=== PATIENT | male | born 1945 | race Two or more races ===

== ENCOUNTER 2016-09-13 20:45 | Inpatient (IN) | payer MEDICARE ==
--- NOTE | 2016-09-13 21:22 | ED ---
Neuro HPI - General Chief Complaint: Altered Mental Status Stated Complaint: slurred speech/not feeling well Time Seen by Provider: 09/13/16 21:00 Source: patient Mode of arrival: wheelchair Limitations: no limitations - History of Present Illness Is the patient presenting with stroke symptoms?: Yes Last Known Well Date: 09/13/16 Last Known Well Time: 19:45 -: hour(s) Initial Comments: This patient is a 70-year-old man who presents with complaint of expressive aphasia. The patient states that approximately 7:45 PM he attempted to phone his sister and was unable to verbally express what he was intending to. He states he was having trouble finding words. The patient's supports him stating that what he was saying was not really making sense. Following this they took his blood pressure and it was elevated, systolic was 170. They brought him here to be checked. They both state that his speech is much better now. The patient states that he is feeling like he is nearly at his baseline. 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 He states that he does follow to have his left checked. The patient also has had replacement heart valve and does take warfarin as prescribed. Location: speech History of same: No Place: home Severity: moderate Improves With: time Worsens With: none On Anticoagulants: Yes (warfarin) Context: sudden onset Associated Symptoms: denies other symptoms Treatments Prior to Arrival: none - Related Data Home Medications: Home Medications Medication Instructions Recorded Confirmed Levothyroxine Sodium [Synthroid] 88 mcg PO DAILY 01/03/14 09/13/16 Metoprolol Tartrate [Lopressor] 50 mg PO BID 01/03/14 09/13/16 Potassium Chloride [Klor-Con 10] 10 meq PO DAILY 01/03/14 09/13/16 Aspirin EC [Ecotrin Low Dose] 81 mg PO DAILY 09/13/16 09/13/16 Cholecalciferol [Vitamin D3] 2,000 unit PO DAILY 09/13/16 09/13/16 Fenofibrate [Lofibra] 160 mg PO DAILY 09/13/16 09/13/16 Glimepiride [Amaryl] 2 mg PO BID 09/13/16 09/13/16 Insulin Glargine,Hum.rec.anlog 10 units SQ DAILY 09/13/16 09/13/16 [Toujeo Solostar] Losartan [Cozaar] 50 mg PO DAILY 09/13/16 09/13/16 Magnesium Oxide [Mag-Ox] 400 mg PO DAILY 09/13/16 09/13/16 Multivit-Min/FA/Lycopene/Lut 1 tab PO DAILY 09/13/16 09/13/16 [Centrum Silver Tablet] [place]-3 Fatty Acids/Fish Oil [Fish 1 cap PO BID 09/13/16 09/13/16 Oil 1,000 mg Softgel] Prasterone (Dhea) [Dhea] 50 mg PO DAILY 09/13/16 09/13/16 Rosuvastatin Calcium [Crestor] 20 mg PO DAILY 09/13/16 09/13/16 Terazosin HCl 2 mg PO HS 09/13/16 09/13/16 Testosterone Cypionate 200 mg IM Q21D 09/13/16 09/13/16 [Depo-Testosterone] Torsemide 10 mg PO MOWEFR 09/13/16 09/13/16 Warfarin Sodium [Coumadin] 2 mg PO SUTU 09/13/16 09/13/16 Warfarin Sodium [Coumadin] 5 mg PO MOWETHFRSA 09/13/16 09/13/16 metFORMIN HCL [Glucophage] 850 mg PO W/SUPPER 09/13/16 09/13/16 Allergies/Adverse Reactions: Allergies Allergy/AdvReac Type Severity Reaction Status Date / Time No Known Allergies Allergy Verified 09/13/16 22:49 Review of Systems ROS Statement: Those systems with pertinent positive or pertinent negative responses have been documented in the HPI. ROS Other: All systems not noted in ROS Statement are negative. Constitutional: Denies: fever, chills, weakness Eyes: Denies: eye pain, vision change ENT: Denies: ear pain, hearing loss Respiratory: Denies: cough, dyspnea Cardiovascular: Denies: chest pain, palpitations, syncope Gastrointestinal: Denies: abdominal pain, nausea, vomiting Genitourinary: Denies: dysuria, hematuria Musculoskeletal: Denies: back pain Skin: Denies: rash Neurological: Reports: other (Expressive aphasia). Denies: headache, weakness, numbness, paresthesias, abnormal gait Hematological/Lymphatic: Reports: as per HPI (Taking Coumadin). Denies: easy bleeding General Exam Limitations: no limitations General appearance: alert, in no apparent distress, obese Head exam: Present: atraumatic, normocephalic Eye exam: Present: normal appearance, PERRL, EOMI. Absent: scleral icterus, conjunctival injection ENT exam: Present: normal oropharynx, mucous membranes moist Neck exam: Present: normal inspection, full ROM Respiratory exam: Present: normal lung sounds bilaterally. Absent: respiratory distress, wheezes, rales, rhonchi, stridor Cardiovascular Exam: Present: regular rate, normal rhythm, systolic murmur, clicks. Absent: diastolic murmur, rubs GI/Abdominal exam: Present: soft. Absent: tenderness, guarding, rebound, mass Extremities exam: Present: normal inspection, normal capillary refill. Absent: pedal edema, calf tenderness Back exam: Present: normal inspection. Absent: CVA tenderness (R), CVA tenderness (L) Neurological exam: Present: alert, oriented X3, CN II-XII intact, normal gait. Absent: motor sensory deficit Skin exam: Present: warm, dry, intact, normal color. Absent: rash Stroke MDM - Lab Data Result diagrams: 09/13/16 21:03 09/13/16 21:03 Lab Results 09/13/16 09/13/16 09/13/16 Range/Units 21:03 21:03 21:03 WBC 9.0 (3.8-10.6) k/uL RBC 5.51 (4.30-5.90) m/uL Hgb 16.7 (13.0-17.5) gm/dL Hct 50.5 (39.0-53.0) % MCV 91.6 (80.0-100.0) fL MCH 30.3 (25.0-35.0) pg MCHC 33.0 (31.0-37.0) g/dL RDW 15.1 (11.5-15.5) % Plt Count 156 (150-450) k/uL Neutrophils % 70 % Lymphocytes % 15 % Monocytes % 8 % Eosinophils % 4 % Basophils % 0 % Neutrophils # 6.3 (1.3-7.7) k/uL Lymphocytes # 1.4 (1.0-4.8) k/uL Monocytes # 0.7 (0-1.0) k/uL Eosinophils # 0.4 (0-0.7) k/uL Basophils # 0.0 (0-0.2) k/uL PT (9.0-12.0) sec INR (<1.1) APTT (22.0-30.0) sec Sodium 141 (137-145) mmol/L Potassium 4.2 (3.5-5.1) mmol/L Chloride 102 (98-107) mmol/L Carbon Dioxide 28 (22-30) mmol/L Anion Gap 11 mmol/L BUN 28 H (9-20) mg/dL Creatinine 1.35 H (0.66-1.25) mg/dL Est GFR (MDRD) Af Amer >60 (>60 ml/min/1.73 sqM) Est GFR (MDRD) Non-Af 52 (>60 ml/min/1.73 sqM) Glucose 170 H (74-99) mg/dL Calcium 10.4 H (8.4-10.2) mg/dL Total Bilirubin 0.9 (0.2-1.3) mg/dL AST 31 (17-59) U/L ALT 33 (21-72) U/L Alkaline Phosphatase 65 (38-126) U/L Total Creatine Kinase 135 (55-170) U/L CK-MB (CK-2) 3.1 H* (0.0-2.4) ng/mL CK-MB (CK-2) Rel Index 2.3 Troponin I 0.689 H* (0.000-0.034) ng/mL Total Protein 7.2 (6.3-8.2) g/dL Albumin 4.2 (3.5-5.0) g/dL Urine Color Urine Appearance (Clear) Urine pH (5.0-8.0) Ur Specific [place] (1.001-1.035) Urine Protein (Negative) Urine Glucose (UA) (Negative) Urine Ketones (Negative) Urine Blood (Negative) Urine Nitrate (Negative) Urine Bilirubin (Negative) Urine Urobilinogen (<2.0) mg/dL Ur Leukocyte Esterase (Negative) Urine RBC (0-5) /hpf Urine WBC (0-5) /hpf Urine Mucus (None) /hpf 09/13/16 09/13/16 Range/Units 21:03 22:10 WBC (3.8-10.6) k/uL RBC (4.30-5.90) m/uL Hgb (13.0-17.5) gm/dL Hct (39.0-53.0) % MCV (80.0-100.0) fL MCH (25.0-35.0) pg MCHC (31.0-37.0) g/dL RDW (11.5-15.5) % Plt Count (150-450) k/uL Neutrophils % % Lymphocytes % % Monocytes % % Eosinophils % % Basophils % % Neutrophils # (1.3-7.7) k/uL Lymphocytes # (1.0-4.8) k/uL Monocytes # (0-1.0) k/uL Eosinophils # (0-0.7) k/uL Basophils # (0-0.2) k/uL PT 31.4 H (9.0-12.0) sec INR 3.2 (<1.1) APTT 33.5 H (22.0-30.0) sec Sodium (137-145) mmol/L Potassium (3.5-5.1) mmol/L Chloride (98-107) mmol/L Carbon Dioxide (22-30) mmol/L Anion Gap mmol/L BUN (9-20) mg/dL Creatinine (0.66-1.25) mg/dL Est GFR (MDRD) Af Amer (>60 ml/min/1.73 sqM) Est GFR (MDRD) Non-Af (>60 ml/min/1.73 sqM) Glucose (74-99) mg/dL Calcium (8.4-10.2) mg/dL Total Bilirubin (0.2-1.3) mg/dL AST (17-59) U/L ALT (21-72) U/L Alkaline Phosphatase (38-126) U/L Total Creatine Kinase (55-170) U/L CK-MB (CK-2) (0.0-2.4) ng/mL CK-MB (CK-2) Rel Index Troponin I (0.000-0.034) ng/mL Total Protein (6.3-8.2) g/dL Albumin (3.5-5.0) g/dL Urine Color Light Yellow Urine Appearance Clear (Clear) Urine pH 7.0 (5.0-8.0) Ur Specific [place] 1.010 (1.001-1.035) Urine Protein Trace H (Negative) Urine Glucose (UA) Negative (Negative) Urine Ketones Negative (Negative) Urine Blood Small H (Negative) Urine Nitrate Negative (Negative) Urine Bilirubin Negative (Negative) Urine Urobilinogen <2.0 (<2.0) mg/dL Ur Leukocyte Esterase Negative (Negative) Urine RBC 16 H (0-5) /hpf Urine WBC 1 (0-5) /hpf Urine Mucus Rare H (None) /hpf - EKG Data -: EKG Interpreted by Me EKG shows normal: sinus rhythm, intervals (The OH interval is 314 ms consistent with a first-degree AV block. The QRS duration is 164 ms, consistent with the right bundle branch block), QRS complexes (Right bundle branch block) Rate: normal (81 bpm) When compared to previous EKG there are: other (The EKG appears similar with the comparison from December 2013) Interpretation: other (There appears to be old inferior infarct.) Past Medical History Past Medical History: Coronary Artery Disease (CAD), Chest Pain / Angina, Diabetes Mellitus, Hyperlipidemia, Hypertension Additional Past Medical History / Comment(s): pacemaker/defi carotids, rt carotid blocked History of Any Multi-Drug Resistant Organisms: None Reported Past Surgical History: Cardiac Valve Replacement Additional Past Surgical History / Comment(s): aortic and mitral valve, pacemaker Past Psychological History: No Psychological Hx Reported Smoking Status: Former smoker Past Alcohol Use History: None Reported Past Drug Use History: None Reported Course Vital Signs 09/13/16 09/13/16 09/13/16 20:50 22:32 23:44 Temperature 98.4 F Pulse Rate 82 71 71 Respiratory 18 18 18 Rate Blood Pressure 200/92 175/80 173/77 O2 Sat by Pulse 94 L 96 98 Oximetry - Reevaluation(s) Reevaluation #1: 09/14/16 00:16 Patient 70-year-old man with TIA. His symptoms had resolved by the time he was evaluated by me. The patient had initial stroke workup, and I was going to have him evaluated by the stroke team via the stroke robot, but the patient refused, stating that he would not go to [place], that he wanted to be admitted here where his current vascular surgeon is Dr. Tapia. We discussed the rationale for the evaluation and possible subsequent transfer but the patient does refuse even after discussion of risks and benefits. Patient's case discussed with the on-call neurologist who will see the patient, and also requested that the CT angio be performed as well. Critical Care Time Critical Care Time: Yes (45 minutes) Disposition Clinical Impression: TIA (transient ischemic attack), Elevated troponin I level Disposition: ADMITTED IP TO THIS HOSP Condition: Fair Referrals: Leonora Chapman MD [Primary Care Provider] - 1-2 days
[2016-09-13 21:26] LABS: Basophils % (A) 0 %; CH 30.6; CHCM 33.6; Eosinophils # (A) 0.4 k/uL (0-0.7); Eosinophils % (A) 4 %; HCT 50.5 % (39.0-53.0); HDW 2.73; HGB 16.7 gm/dL (13.0-17.5); Luc # (Auto) 0.19; Luc % (Auto) 2; Lymphocytes # (A) 1.4 k/uL (1.0-4.8); Lymphocytes % (A) 15 %; MCH 30.3 pg (25.0-35.0); MCV 91.6 fL (80.0-100.0); Mean Platelet Volume 7.6; Monocytes # (A) 0.7 k/uL (0-1.0); Monocytes % (A) 8 %; Neutrophils # (A) 6.3 k/uL (1.3-7.7); Neutrophils % (A) 70 %; RBC 5.51 m/uL (4.30-5.90); RDW 15.1 % (11.5-15.5); WBC (Perox) 8.96
[2016-09-13 21:35] LABS: INR 3.2 (<1.1); Partial Thromboplastin Time 33.5 sec (22.0-30.0); Prothrombin Time 31.4 sec (9.0-12.0)
[2016-09-13 21:36] LABS: ALT 33 U/L (21-72); AST 31 U/L (17-59); Alkaline Phosphatase 65 U/L (38-126); Anion Gap 11 mmol/L; Blood Urea Nitrogen 28 mg/dL (9-20); Calcium 10.4 mg/dL (8.4-10.2); Carbon Dioxide 28 mmol/L (22-30); Chloride 102 mmol/L (98-107); Glucose 170 mg/dL (74-99); Non-African American GFR(MDRD) 52 (>60 ml/min/1.73 sqM); Potassium 4.2 mmol/L (3.5-5.1); Sodium 141 mmol/L (137-145); Total Bilirubin 0.9 mg/dL (0.2-1.3); Total Protein 7.2 g/dL (6.3-8.2)
--- NOTE | 2016-09-13 21:39 | XR ---
EXAMINATION TYPE: XR chest 1V portable DATE OF EXAM: 09/13/2016 9:31 PM HISTORY: Shortness of breath. COMPARISON: 01/03/2014 TECHNIQUE: Single view of the chest is submitted. FINDINGS: Demonstrated are scattered senescent parenchymal change. There is no evidence for focal infiltrate. The heart is enlarged Hilar and mediastinal structures are within normal limits. Degenerative changes are seen of the dorsal spine. IMPRESSION: 1. Chronic changes without evidence for acute pulmonary disease.
--- NOTE | 2016-09-13 21:39 | CT ---
EXAMINATION TYPE: CT brain wo con DATE OF EXAM: 09/13/2016 9:33 PM COMPARISON: NONE HISTORY: Slurred speech and confusion. CT DLP: 1005.20 mGycm FINDINGS: The ventricles, basal cisterns and sulci overlying the cerebral convexities demonstrate mild enlargem ent. There is no evidence for acute mass effect or midline shift. I do not see evidence for cranial hemorrhage or extra-axial collection. Periventricular white matter ischemic demyelination and remote deep white matter insults noted. Under lying demyelination not excluded. Paranasal sinuses are well aerated. Bony calvarium is intact. If symptoms persist consider MRI correlation. IMPRESSION: 1. No acute intracranial process identified.
[2016-09-13 22:05] LABS: Creatine Kinase MB 3.1 ng/mL (0.0-2.4)
[2016-09-13 22:06] LABS: Troponin I 0.689 ng/mL (0.000-0.034)
[2016-09-13 22:26] LABS: Appearance,Urine Clear (Clear); Bilirubin,Urine Negative (Negative); Glucose,Urine (UA) Negative (Negative); Ketones,Urine Negative (Negative); Leukocyte Esterase,Urine Negative (Negative); Mucus,Urine Rare /hpf; Nitrite,Urine Negative (Negative); Particle Count 1378; Protein,Urine Trace (Negative); RBC,Urine 16 /hpf (0-5); UA Billing (MACRO vs. MICRO) MICRO; Urobilinogen,Urine <2.0 mg/dL (<2.0); WBC,Urine 1 /hpf (0-5)
[2016-09-14] MEDS ORDERED: RX INFO: IV CONTRAST WAS GIVEN 1 EACH MISC MISCELLANE PRN (00:09)
[2016-09-14] MEDS: SODIUM CHLORIDE 0.9% 1,000 ML IV SCH ×2 (01:59→15:49)
[2016-09-14 02:59] VITALS: BMI 33.0
--- NOTE | 2016-09-14 03:16 | CT ---
EXAMINATION TYPE: CT angio head neck DATE OF EXAM: 09/14/2016 1:03 AM COMPARISON: CT brain 09/13/2016. HISTORY: AMS, hx of occluded right carotid CT DLP: 520.10 mGycm Automated exposure control for dose reduction was used. TECHNIQUE: Performed with IV Contrast, patient injected with 65 mL of Visipaque 320. . FINDINGS: CTA BRAIN: Opacified [place] arterial structures showed no significant aneurysm, stenosis or AV malform ation including anterior, middle and posterior cerebral arteries and the visualized anterior and post erior communicating arteries. There is evidence of filling defect in the area of right transverse sinus in the axial image 82 serie s 4 and is suspicious for thrombosis of transverse sinus in the base of the brain. However this is pr obably related to old infarction changes. This is probably intrinsic defect rather than within the ri ght transverse sinus. CTA NECK: Aortic arch: Mild to moderate atherosclerotic calcification is noted in the visualized aortic arch. T he ascending aorta measures 3.8 cm in greatest AP diameter with mild ectatic changes without signific ant aneurysm. Right carotid artery: Mild atheromatous changes are noted in the right common carotid artery in the p roximal portion. Dense atheromatous plaques are noted in the right carotid bulb and right internal ca rotid artery with complete occlusion of the right internal carotid artery. Ectatic right external carotid artery is noted with multiple opacified branches in the right neck. There is reconstitution of right internal carotid artery probably from the anterior, indicating arter y in the base of the brain. Left carotid artery: Left common carotid artery showed mild atheromatous changes in the proximal port ion. Left carotid bulb showed moderate atherosclerotic plaques extending into the left internal carot id artery with approximately 60-70% stenosis in the proximal left internal carotid artery and left ca rotid bulb in the axial image 51. This stenosis is difficult to evaluate due to dense atheromatous pl aques. The left external carotid artery showed no significant stenotic changes. Vertebral arteries: The right vertebral artery showed mild atheromatous changes at its origin without significant stenosis. Distal right vertebral artery showed mild irregularity with atheromatous infante es. The left vertebral artery is dominant and larger in size without significant stenotic changes. Basila r artery appears grossly unremarkable. Others: Visualized upper lung [place] appear grossly unremarkable. Soft tissues of neck showed no significant acute abnormality. IMPRESSION: 1. THE LAC V[place] OF [place] ARTERIAL STRUCTURES APPEAR GROSSLY UNREMARKABLE WITHOUT SIGNIFICANT ANEURYSM OR STENOSIS. 2. THERE IS TOTAL OCCLUSION OF RIGHT INTERNAL CAROTID ARTERY IN THE PROXIMAL PORTION. 3. THERE IS MODERATE 60-70% STENOSIS IN THE PROXIMAL LEFT INTERNAL CAROTID ARTERY AND LEFT CAROTID BU LB. 4. FOCAL FILLING DEFECT AREA IN THE REGION OF TRANSVERSE SINUS ON THE RIGHT SIDE IN THE AXIAL IMAGE 8 0 TO SERIES 4 IS PROBABLY AN EXTRINSIC DEFECT OR IRREGULARITY RATHER THAN THROMBOSIS OF THE RIGHT TRA NSVERSE SINUS. A CLINICAL CORRELATION AND FOLLOW-UP IS RECOMMENDED. A PHONE REPORT IS GIVEN TO DR. TRENT AT THE TIME OF THE DICTATION.
[2016-09-14] MEDS: WARFARIN 5 MG TAB PO SCH ×2 (04:44→22:12)
[2016-09-14 06:50] LABS: Glucose,Whole Blood 74 mg/dL (75-99)
--- NOTE | 2016-09-14 08:35 | P.CRDCN ---
History of Present Illness Consult date: 09/14/16 Requesting physician: Florentin Marshall Reason for Consult (text): This is a pleasant 70-year-old gentleman with known history of hypertension, diabetes, hyperlipidemia, prior aortic and mitral valve replacements, AICD implantation, total right carotid occlusion, hypothyroidism, who presented to the hospital with symptoms of expressive aphasia. He states that yesterday morning he was in his computer room, picked up the phone to of his sister, and was unable to do that. He states that he knew what he wanted to say but was unable to get the words out. He denies any blurred vision , no weakness on either side of his body. Symptoms lasted a couple hours in duration. At the time of my examination this morning, patient is back to his normal self. EKG on arrival here shows a normal sinus rhythm with a long first- degree AV block. Intermittent paced beats. CBC normal. INR 3.2. BUN 28, creatinine 1.3. Troponin 0.68, 0.8. At scan of the brain did not reveal any acute intracranial process. Chest x-ray reveals chronic changes without evidence for acute pulmonary disease. CTA revealed total occlusion of the right internal carotid artery, moderate 60-70% stenosis in the proximal left internal carotid artery. Focal filling defect area in the region of transfer sinus on the right side in the axial image probably an extrinsic defect or regularity rather than thrombosis of the right transverse sinus. Blood pressure 150/80, heart rate in the 70s, 97% on room air. Past Medical History Past Medical History: Coronary Artery Disease (CAD), Heart Failure, Diabetes Mellitus, Hyperlipidemia, Hypertension, Prostate Disorder Additional Past Medical History / Comment(s): pacemaker/defibrilator in 2007, Right carotid artery blocked 100% History of Any Multi-Drug Resistant Organisms: None Reported Past Surgical History: Cardiac Valve Replacement Additional Past Surgical History / Comment(s): aortic sanjay replaced in 1991, and mitral valve in 2012, AICD in 2007 Past Anesthesia/Blood Transfusion Reactions: No Reported Reaction Past Psychological History: No Psychological Hx Reported Smoking Status: Never smoker Past Alcohol Use History: Occasional Past Drug Use History: None Reported - Past Family History Father Additional Family Medical History / Comment(s): of aneurysm when patient was a kid Mother Family Medical History: CVA/TIA Medications and Allergies Home Medications Medication Instructions Recorded Confirmed Type Levothyroxine Sodium [Synthroid] 88 mcg PO DAILY 01/03/14 09/13/16 History Metoprolol Tartrate [Lopressor] 50 mg PO BID 01/03/14 09/13/16 History Potassium Chloride [Klor-Con 10] 10 meq PO DAILY 01/03/14 09/13/16 History Aspirin EC [Ecotrin Low Dose] 81 mg PO DAILY 09/13/16 09/13/16 History Cholecalciferol [Vitamin D3] 2,000 unit PO DAILY 09/13/16 09/13/16 History Fenofibrate [Lofibra] 160 mg PO DAILY 09/13/16 09/13/16 History Glimepiride [Amaryl] 2 mg PO BID 09/13/16 09/13/16 History Insulin Glargine,Hum.rec.anlog 10 units SQ DAILY 09/13/16 09/13/16 History [Toujeo Solostar] Losartan [Cozaar] 50 mg PO DAILY 09/13/16 09/13/16 History Magnesium Oxide [Mag-Ox] 400 mg PO DAILY 09/13/16 09/13/16 History Multivit-Min/FA/Lycopene/Lut 1 tab PO DAILY 09/13/16 09/13/16 History [Centrum Silver Tablet] [place]-3 Fatty Acids/Fish Oil [Fish 1 cap PO BID 09/13/16 09/13/16 History Oil 1,000 mg Softgel] Prasterone (Dhea) [Dhea] 50 mg PO DAILY 09/13/16 09/13/16 History Rosuvastatin Calcium [Crestor] 20 mg PO DAILY 09/13/16 09/13/16 History Terazosin HCl 2 mg PO HS 09/13/16 09/13/16 History Testosterone Cypionate 200 mg IM Q21D 09/13/16 09/13/16 History [Depo-Testosterone] Torsemide 10 mg PO MOWEFR 09/13/16 09/13/16 History Warfarin Sodium [Coumadin] 2 mg PO SUTU 09/13/16 09/13/16 History Warfarin Sodium [Coumadin] 5 mg PO MOWETHFRSA 09/13/16 09/13/16 History metFORMIN HCL [Glucophage] 850 mg PO W/SUPPER 09/13/16 09/13/16 History Allergies Allergy/AdvReac Type Severity Reaction Status Date / Time No Known Allergies Allergy Verified 09/13/16 22:49 Physical Exam Vitals: Vital Signs Temp Pulse Pulse Resp BP BP Pulse Ox 09/14/16 07:52 78 18 09/14/16 07:51 98 F 78 18 151/81 97 09/14/16 05:01 133/70 09/14/16 03:00 98.5 F 71 18 162/87 96 09/14/16 02:05 98.7 F 71 18 154/91 96 09/14/16 02:02 97.6 F 70 18 168/79 99 Intake and Output 09/13/16 09/14/16 09/14/16 22:59 06:59 14:59 Intake Total 450 Balance 450 Intake: IV 450 Sodium Chloride 0.9% 1, 450 000 ml @ 75 mls/hr IV . [id number] [facility] Rx#:[id number] Other: Voiding Method Toilet Toilet Urinal Urinal Weight 101.7 kg 101.7 kg Patient Weight 09/15/16 06:59 Weight 101.7 kg PHYSICAL EXAMINATION: HEENT: Head is atraumatic, normocephalic. Pupils equal, round. Neck is supple. There is no elevated jugular venous pressure. HEART EXAMINATION: Heart S1 and S2 systolic murmur is heard. CHEST EXAMINATION: Lungs are clear to auscultation and precussion. No chest wall tenderness is noted on palpation or with deep breathing. ABDOMEN: Soft, nontender. Bowel sounds are heard. No organomegaly noted. EXTREMITIES: 2+ peripheral pulses with no evidence of peripheral edema and no calf tenderness noted. NEUROLOGIC patient is awake, alert and oriented -3. . Results 09/13/16 21:03 09/13/16 21:03 Cardiac Enzymes 09/14/16 Range/Units 03:16 Troponin I 0.803 H* (0.000-0.034) ng/mL Current Medications Generic Name Dose Route Start Last Admin Trade Name Freq PRN Reason Stop Dose Admin Aspirin 81 mg 09/14/16 09:00 Aspirin PO DAILY [facility] Atorvastatin Calcium 40 mg 09/14/16 09:00 Lipitor PO DAILY [facility] Cholecalciferol 2,000 unit 09/14/16 09:00 Vitamin D3 PO DAILY [facility] Fenofibrate 160 mg 09/14/16 09:00 Lofibra PO DAILY [facility] Furosemide 20 mg 09/15/16 00:14 Lasix PO MOWEFR [facility] Glimepiride 2 mg 09/14/16 09:00 Amaryl PO BID [facility] Sodium Chloride 1,000 mls @ 75 mls/hr 09/14/16 00:15 09/14/16 01:59 Saline 0.9% IV 75 mls/hr .[id number] BRYON Administration Insulin Detemir 10 unit 09/14/16 09:00 Levemir SQ DAILY [facility] Levothyroxine Sodium 88 mcg 09/14/16 09:00 Synthroid PO DAILY [facility] Losartan Potassium 50 mg 09/14/16 09:00 Cozaar PO DAILY [facility] Magnesium Oxide 400 mg 09/14/16 09:00 Mag-Ox PO DAILY [facility] Metoprolol Tartrate 50 mg 09/14/16 09:00 Lopressor PO BID [facility] Miscellaneous Information 1 each 09/14/16 00:09 Rx Info: Iv Contrast Was Given MISCELLANE 09/16/16 00:09 DAILY PRN Per Protocol Multivitamins 1 each 09/14/16 09:00 Theragran PO DAILY [facility] Non-Formulary Medication 50 mg 09/14/16 09:00 Prasterone (Dhea) [Dhea] PO DAILY [facility] Potassium Chloride 10 meq 09/14/16 09:00 K-Dur 10 PO DAILY [facility] Terazosin HCl 2 mg 09/14/16 21:00 Hytrin PO HS [facility] Warfarin Sodium 5 mg 09/14/16 00:15 09/14/16 04:44 Coumadin PO Not Given MOWETHFRSA [facility] Warfarin Sodium 2 mg 09/17/16 00:14 Coumadin PO SUTU [facility] Intake and Output 09/13/16 09/14/16 09/14/16 22:59 06:59 14:59 Intake Total 450 Balance 450 Intake: IV 450 Sodium Chloride 0.9% 1, 450 000 ml @ 75 mls/hr IV . [id number] [facility] Rx#:[id number] Other: Voiding Method Toilet Toilet Urinal Urinal Weight 101.7 kg 101.7 kg Patient Weight 09/15/16 06:59 Weight 101.7 kg EKG Interpretations (text) EKG shows normal sinus rhythm with right bundle branch block pattern and first degree AV block. Assessment and Plan Plan: Assessment and plan #1 symptoms of expressive aphasia, suggestive of TIA, completely resolved this morning. #2 known history of aortic and mitral valve replacements #3 AICD implantation #4 hypertension #5 hyperlipidemia #6 diabetes #7 hypothyroidism #7 abnormal troponin, 0.6, 0.8. Patient denies having any chest discomfort. Plan We'll obtain an echocardiogram with Doppler study. We will obtain a third troponin value. Patient's INR is therapeutic at 3.2. 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 Further recommendations to follow. DNP note has been reviewed, I agree with a documented findings and plan of care. Patient was seen and examined.
--- NOTE | 2016-09-14 08:38 | P.GSCN ---
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 Chapman and follow with you thank very much Past Medical History Past Medical History: Coronary Artery Disease (CAD), Heart Failure, Diabetes Mellitus, Hyperlipidemia, Hypertension, Prostate Disorder Additional Past Medical History / Comment(s): pacemaker/defibrilator in 2007, Right carotid artery blocked 100% History of Any Multi-Drug Resistant Organisms: None Reported Past Surgical History: Cardiac Valve Replacement Additional Past Surgical History / Comment(s): aortic sanjay replaced in 1991, and mitral valve in 2012, AICD in 2007 Past Anesthesia/Blood Transfusion Reactions: No Reported Reaction Past Psychological History: No Psychological Hx Reported Smoking Status: Never smoker Past Alcohol Use History: Occasional Past Drug Use History: None Reported - Past Family History Father Additional Family Medical History / Comment(s): of aneurysm when patient was a kid Mother Family Medical History: CVA/TIA Medications and Allergies Home Medications Medication Instructions Recorded Confirmed Type Levothyroxine Sodium [Synthroid] 88 mcg PO DAILY 01/03/14 09/13/16 History Metoprolol Tartrate [Lopressor] 50 mg PO BID 01/03/14 09/13/16 History Potassium Chloride [Klor-Con 10] 10 meq PO DAILY 01/03/14 09/13/16 History Aspirin EC [Ecotrin Low Dose] 81 mg PO DAILY 09/13/16 09/13/16 History Cholecalciferol [Vitamin D3] 2,000 unit PO DAILY 09/13/16 09/13/16 History Fenofibrate [Lofibra] 160 mg PO DAILY 09/13/16 09/13/16 History Glimepiride [Amaryl] 2 mg PO BID 09/13/16 09/13/16 History Insulin Glargine,Hum.rec.anlog 10 units SQ DAILY 09/13/16 09/13/16 History [Toujeo Solostar] Losartan [Cozaar] 50 mg PO DAILY 09/13/16 09/13/16 History Magnesium Oxide [Mag-Ox] 400 mg PO DAILY 09/13/16 09/13/16 History Multivit-Min/FA/Lycopene/Lut 1 tab PO DAILY 09/13/16 09/13/16 History [Centrum Silver Tablet] [place]-3 Fatty Acids/Fish Oil [Fish 1 cap PO BID 09/13/16 09/13/16 History Oil 1,000 mg Softgel] Prasterone (Dhea) [Dhea] 50 mg PO DAILY 09/13/16 09/13/16 History Rosuvastatin Calcium [Crestor] 20 mg PO DAILY 09/13/16 09/13/16 History Terazosin HCl 2 mg PO HS 09/13/16 09/13/16 History Testosterone Cypionate 200 mg IM Q21D 09/13/16 09/13/16 History [Depo-Testosterone] Torsemide 10 mg PO MOWEFR 09/13/16 09/13/16 History Warfarin Sodium [Coumadin] 2 mg PO SUTU 09/13/16 09/13/16 History Warfarin Sodium [Coumadin] 5 mg PO MOWETHFRSA 09/13/16 09/13/16 History metFORMIN HCL [Glucophage] 850 mg PO W/SUPPER 09/13/16 09/13/16 History Allergies Allergy/AdvReac Type Severity Reaction Status Date / Time No Known Allergies Allergy Verified 09/13/16 22:49 Surgical - Exam Vital Signs Temp Pulse Resp BP Pulse Ox 98.4 F 82 18 200/92 94 L 09/13/16 20:50 09/13/16 20:50 09/13/16 20:50 09/13/16 20:50 09/13/16 20:50 Results - Labs 09/13/16 21:03 09/13/16 21:03 Abnormal Lab Results - Last 24 Hours (Table) 09/14/16 09/14/16 Range/Units 03:16 06:49 POC Glucose (mg/dL) 74 L (75-99) mg/dL Troponin I 0.803 H* (0.000-0.034) ng/mL
[2016-09-14] MEDS ORDERED: PRASTERONE 50 MG PO SCH (09:00)
[2016-09-14] MEDS ORDERED: NON-FORMULARY DRUG (Omega-3 Fatty Acids/Fish Oil [Fish Oil 1,000 Mg Softgel] 1 CAP) PO SCH (09:00)
[2016-09-14] MEDS: ASPIRIN 81 MG CHEW PO SCH (09:02)
[2016-09-14] MEDS: GLIMEPIRIDE 2 MG TAB PO SCH ×2 (09:02→22:12)
[2016-09-14] MEDS: METOPROLOL TARTRATE 50 MG TAB PO SCH ×2 (09:03→22:12)
[2016-09-14] MEDS: ATORVASTATIN 40 MG TAB PO SCH (09:03)
[2016-09-14] MEDS: MAGNESIUM OXIDE 400 MG TAB PO SCH (09:03)
[2016-09-14] MEDS: LEVOTHYROXINE 88 MCG TAB PO SCH (09:03)
[2016-09-14] MEDS: CHOLECALCIFEROL 1,000 UNIT TAB PO SCH (09:03)
[2016-09-14] MEDS: FENOFIBRATE 160 MG TAB PO SCH (09:03)
[2016-09-14] MEDS: MULTIVITAMINS, THERA 1 EACH TAB PO SCH (09:04)
[2016-09-14] MEDS: POTASSIUM CHLORIDE ER 10 MEQ TAB.ER.PRT PO SCH (09:04)
[2016-09-14] MEDS: LOSARTAN 50 MG TAB PO SCH (09:04)
[2016-09-14] MEDS: INSULIN DETEMIR 100 UNIT/ML 10 ML VIAL SQ SCH (09:08)
--- NOTE | 2016-09-14 10:28 | ECHOF ---
Referral Reason:Thrombus MEASUREMENTS -------- HEIGHT: 180.3 cm WEIGHT: 101.6 kg BP: 151/79 IVSd: 1.5 cm (0.6 - 1.1) LVIDd: 3.9 cm (3.9 - 5.3) LVPWd: 1.4 cm (0.6 - 1.1) IVSs: 2.1 cm LVIDs: 3.1 cm LVPWs: 1.5 cm MV E Rhett: 0.27 m/s MV DecT: 118 ms MV A Rhett: 0.65 m/s MV E/A Ratio: 0.41 AV maxP.04 mmHg AV meanP.87 mmHg RAP: 5.00 mmHg RVSP: 14.74 mmHg FINDINGS -------- Sinus rhythm. COSIDER ALEXIS IF CLINICALLY INDICATED. This was a technically difficult study with suboptimal views. There is moderate concentric left ventricular hypertrophy. Overall left ventricular systolic function is mild-moderately impaired with, an EF between 40 - 45 %. Possible torn chordae vs torn pap muscle seen in the LV apex Mid to basal inferiorlateral is hypokinetic The right ventricle is normal in size and function. The left atrium is normal in size. The right atrium is normal in size. Peak/mean gradient across the Aortic Valve is 25.04mmHg / 19.87mmHg. Normally functioning mechanical prosthetic valve. Normal Mechanical prosthetic valve. Mild tricuspid regurgitation present. The right ventricular systolic pressure, as measured by Doppler, is 14.74mmHg. Pulmonic valve appears structurally normal. The aortic root, ascending aorta and aortic arch are normal. The pericardium is normal. CONCLUSIONS -------- 1. Sinus rhythm. 2. Peak/mean gradient across the Aortic Valve is 25.04mmHg / 19.87mmHg. 3. Normally functioning mechanical prosthetic valve. 4. Normal Mechanical prosthetic valve. 5. Mild tricuspid regurgitation present. 6. The right ventricular systolic pressure, as measured by Doppler, is 14.74mmHg. 7. Pulmonic valve appears structurally normal. 8. The aortic root, ascending aorta and aortic arch are normal. 9. The pericardium is normal. 10. This was a technically difficult study with suboptimal views. 11. There is moderate concentric left ventricular hypertrophy. 12. Overall left ventricular systolic function is mild-moderately impaired with, an EF between 40 - 45 %. 13. Possible torn chordae vs torn pap muscle seen in the LV apex 14. Mid to basal inferiorlateral is hypokinetic 15. The right ventricle is normal in size and function. 16. The left atrium is normal in size. 17. The right atrium is normal in size. NETWORK RELAY TESTER: Kate Valladares RDCS
[2016-09-14] MEDS: INSULIN LISPRO (humaLOG) 300 UNIT/3 ML VIAL SQ SCH ×3 (11:45→22:16)
[2016-09-14 11:50] LABS: Glucose,Whole Blood 261 mg/dL (75-99)
--- NOTE | 2016-09-14 13:10 | P.HPIM ---
History of Present Illness H&P Date: 09/14/16 Chief Complaint: Slurred speech This is a 70-year-old male. His primary care physician is Dr. Chapman. 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 Tapia. He states he was making a phone call to his sister and he had difficulty dialing the phone and called to wish her happy birthday and those were the only words he could get out. After that he was saying the wrong words and he felt very confused and he was aware of being confused. His also concurred that he had a confusion and had difficulty with speech. He presented to [facility] emergency center with the above complaints. Troponin 0.689, 0.803, BUN 28 creatinine 1.35. Blood sugar 170. INR 3.2. Urinalysis with small amount of blood. EKG was a normal sinus rhythm with first-degree AV block and intermittent paced beats. CTA revealed total occlusion of the right internal carotid artery, moderate 60-70% stenosis in the proximal left internal carotid artery. Focal filling defect area in the region of the transverse sinus on the right side in the axillary image probably an extrinsic defect or regularity rather than thrombosis of the right transverse sinus. Patient was admitted to the selective care unit for TIA. Neurology, cardiology and vascular consults ordered. Echocardiogram reveals mild tricuspid regurgitation, moderate concentric left ventricle hypertrophy, EF 40- 45%, possible torn chordae versus torn pap muscle seen in the LV apex. Review of Systems All systems: negative Constitutional: Denies anorexia, Denies chills, Denies fatigue, Denies fever, Denies weakness Eyes: denies blurred vision, denies pain Ears, nose, mouth and throat: Denies headache, Denies sore throat Cardiovascular: Denies chest pain, Denies shortness of breath Respiratory: Denies cough Gastrointestinal: Denies abdominal pain, Denies diarrhea, Denies nausea, Denies vomiting Musculoskeletal: Denies myalgias Integumentary: Denies pruritus, Denies rash Neurological: Reports aphasia, Reports change in mentation, Reports change in speech, Reports confusion, Denies convulsions, Denies double vision, Denies gait dysfunction, Denies headaches, Denies loss of vision, Denies motor disturbance, Denies numbness, Denies syncope, Denies tingling, Denies tremors, Denies vertigo, Denies weakness, Denies visual changes Psychiatric: Denies anxiety, Denies depression Endocrine: Denies fatigue, Denies weight change Past Medical History Past Medical History: Diabetes Mellitus, Hyperlipidemia, Hypertension, Prostate Disorder, Thyroid Disorder Additional Past Medical History / Comment(s): Right carotid artery blocked 100% , hypothyroidism, benign prostatic hypertrophy, vitamin D deficiency History of Any Multi-Drug Resistant Organisms: None Reported Past Surgical History: AICD, Cardiac Valve Replacement Additional Past Surgical History / Comment(s): aortic sanjay replaced in 1991, and mitral valve in 2012, AICD in 2007 Past Anesthesia/Blood Transfusion Reactions: No Reported Reaction Past Psychological History: No Psychological Hx Reported Smoking Status: Never smoker Past Alcohol Use History: Occasional Additional Past Alcohol Use History / Comment(s): Patient is a lifelong nonsmoker. He denies any medical marijuana, marijuana, street drug use. He lives at home with his . Past Drug Use History: None Reported - Past Family History Father Additional Family Medical History / Comment(s): Father at a young age from abdominal aneurysm. Mother Family Medical History: CVA/TIA Additional Family Medical History / Comment(s): Mother in her 60s from a stroke. Son(s) Additional Family Medical History / Comment(s): He has 2 sons with no major medical problems. Medications and Allergies Home Medications Medication Instructions Recorded Confirmed Type Levothyroxine Sodium [Synthroid] 88 mcg PO DAILY 01/03/14 09/13/16 History Metoprolol Tartrate [Lopressor] 50 mg PO BID 01/03/14 09/13/16 History Potassium Chloride [Klor-Con 10] 10 meq PO DAILY 01/03/14 09/13/16 History Aspirin EC [Ecotrin Low Dose] 81 mg PO DAILY 09/13/16 09/13/16 History Cholecalciferol [Vitamin D3] 2,000 unit PO DAILY 09/13/16 09/13/16 History Fenofibrate [Lofibra] 160 mg PO DAILY 09/13/16 09/13/16 History Glimepiride [Amaryl] 2 mg PO BID 09/13/16 09/13/16 History Insulin Glargine,Hum.rec.anlog 10 units SQ DAILY 09/13/16 09/13/16 History [Toujeo Solostar] Losartan [Cozaar] 50 mg PO DAILY 09/13/16 09/13/16 History Magnesium Oxide [Mag-Ox] 400 mg PO DAILY 09/13/16 09/13/16 History Multivit-Min/FA/Lycopene/Lut 1 tab PO DAILY 09/13/16 09/13/16 History [Centrum Silver Tablet] [place]-3 Fatty Acids/Fish Oil [Fish 1 cap PO BID 09/13/16 09/13/16 History Oil 1,000 mg Softgel] Prasterone (Dhea) [Dhea] 50 mg PO DAILY 09/13/16 09/13/16 History Rosuvastatin Calcium [Crestor] 20 mg PO DAILY 09/13/16 09/13/16 History Terazosin HCl 2 mg PO HS 09/13/16 09/13/16 History Testosterone Cypionate 200 mg IM Q21D 09/13/16 09/13/16 History [Depo-Testosterone] Torsemide 10 mg PO MOWEFR 09/13/16 09/13/16 History Warfarin Sodium [Coumadin] 2 mg PO SUTU 09/13/16 09/13/16 History Warfarin Sodium [Coumadin] 5 mg PO MOWETHFRSA 09/13/16 09/13/16 History metFORMIN HCL [Glucophage] 850 mg PO W/SUPPER 09/13/16 09/13/16 History Allergies Allergy/AdvReac Type Severity Reaction Status Date / Time No Known Allergies Allergy Verified 09/13/16 22:49 Physical Exam Vitals: Vital Signs Temp Pulse Pulse Resp BP BP Pulse Ox 09/14/16 07:52 78 18 09/14/16 07:51 98 F 78 18 151/81 97 09/14/16 05:01 133/70 09/14/16 03:00 98.5 F 71 18 162/87 96 09/14/16 02:05 98.7 F 71 18 154/91 96 09/14/16 02:02 97.6 F 70 18 168/79 99 Intake and Output 09/13/16 09/14/16 09/14/16 22:59 06:59 14:59 Intake Total 450 Balance 450 Intake: IV 450 Sodium Chloride 0.9% 1, 450 000 ml @ 75 mls/hr IV . [id number] [facility] Rx#:[id number] Other: Voiding Method Toilet Toilet Urinal Urinal Weight 101.7 kg 101.7 kg Patient Weight 09/15/16 06:59 Weight 101.7 kg Gen: This is a 70-year-old male. HEENT: Head is atraumatic, normocephalic. Pupils equal, round. Sclerae is anicteric. NECK: Supple. No JVD. No lymphadenopathy. No thyromegaly. LUNGS: Clear to auscultation. No wheezes or rhonchi. No intercostal retractions. HEART: Regular rate and rhythm. Systolic murmur. ABDOMEN: Soft. Bowel sounds are present. No masses. No tenderness. EXTREMITIES: No pedal edema. No calf tenderness. Dorsalis pedis +2 bilaterally. NEUROLOGICAL: Patient is awake, alert and oriented x3. Cranial nerves 2 through 12 are grossly intact. Speech is clear. Results CBC & Chem 7: 09/13/16 21:03 09/13/16 21:03 Labs: Abnormal Lab Results - Last 24 Hours (Table) 09/14/16 09/14/16 Range/Units 03:16 06:49 POC Glucose (mg/dL) 74 L (75-99) mg/dL Troponin I 0.803 H* (0.000-0.034) ng/mL Thrombosis Risk Factor Assmnt - DVT/VTE Prophylaxis DVT/VTE Prophylaxis: Pharmacologic Prophylaxis ordered - Choose All That Apply Each Factor Represents 1 point: Obesity (BMI >25) Other Risk Factors: Yes Each Risk Factor Represents 2 Points: Age 61-74 years Thrombosis Risk Factor Assessment Total Risk Factor Score: 3 Thrombosis Risk Factor Assessment Level: Moderate Risk Assessment and Plan Plan: 1. TIA, presenting with expressive aphasia, resolved. Consult with neurology. Consult with Dr. Tapia appreciated for known history of total occlusion of the right carotid artery under surveillance by Dr. Tapia. Continue neuro checks. PT, OT, speech therapy consults and place. Continue aspirin 81 mg and Coumadin. 2. Elevated troponins. Cardiology is on consult. Echocardiogram report as above. Await further recommendations from cardiology. 3. History of aortic and mitral valve replacement. Currently on Coumadin. 3. History of heart failure with AICD implantation, stable. Continue Lasix 20 mg Sunday and Sunday, metoprolol 50 mg twice daily 4. Hypertension. Continue losartan 50 mg daily, metoprolol 50 mg twice daily 5. Hyperlipidemia. Continue Lipitor 40 mg daily, fenofibrate daily 6. Diabetes mellitus type 2. Continue Levemir 10 mg daily, Amaryl 2 mg twice daily, Humalog scale before meals and at bedtime. Metformin is on hold. 7. Hypothyroidism. Continue levothyroxine 88 g daily 8. Benign prostatic hypertrophy. Continue Hytrin 2 mg at bedtime 9. Vitamin D deficiency. Continue supplement. 10. Gastric intestinal prophylaxis. 11. DVT prophylaxis. Patient on Coumadin. Patient will be admitted to the hospital for a minimum of 2 night stay. Discharge plan: Return home Impression and plan of care have been directed as dictated by the signing physician. Tegan Gutiérrez nurse practitioner acting as scribe for signing physician. Time with Patient: Greater than 30
[2016-09-14 16:56] LABS: Glucose,Whole Blood 109 mg/dL (75-99)
[2016-09-14] MEDS ORDERED: metFORMIN 850 MG TAB PO SCH (17:30)
[2016-09-14 20:55] LABS: Glucose,Whole Blood 129 mg/dL (75-99)
[2016-09-14] MEDS ORDERED: TERAZOSIN 2 MG CAP PO SCH (21:00)
[2016-09-15] MEDS ORDERED: FUROSEMIDE 20 MG TAB PO SCH (00:14)
[2016-09-15] MEDS: SODIUM CHLORIDE 0.9% 1,000 ML IV SCH (02:40)
[2016-09-15 06:15] LABS: Glucose,Whole Blood 80 mg/dL (75-99)
[2016-09-15 06:33] LABS: INR 3.4 (<1.1); Prothrombin Time 33.4 sec (9.0-12.0)
[2016-09-15] MEDS: INSULIN LISPRO (humaLOG) 300 UNIT/3 ML VIAL SQ SCH (06:48)
[2016-09-15 07:45] VITALS: PULSE 64; RESP 17; TEMP 97.7
[2016-09-15] MEDS: CHOLECALCIFEROL 1,000 UNIT TAB PO SCH (07:46)
[2016-09-15] MEDS: ASPIRIN 81 MG CHEW PO SCH (07:46)
[2016-09-15] MEDS: ATORVASTATIN 40 MG TAB PO SCH (07:46)
[2016-09-15] MEDS: GLIMEPIRIDE 2 MG TAB PO SCH (07:46)
[2016-09-15] MEDS: MAGNESIUM OXIDE 400 MG TAB PO SCH (07:47)
[2016-09-15] MEDS: METOPROLOL TARTRATE 50 MG TAB PO SCH (07:47)
[2016-09-15] MEDS: FENOFIBRATE 160 MG TAB PO SCH (07:47)
[2016-09-15] MEDS: LEVOTHYROXINE 88 MCG TAB PO SCH (07:47)
[2016-09-15] MEDS: MULTIVITAMINS, THERA 1 EACH TAB PO SCH (07:48)
[2016-09-15] MEDS: LOSARTAN 50 MG TAB PO SCH (07:48)
[2016-09-15] MEDS: POTASSIUM CHLORIDE ER 10 MEQ TAB.ER.PRT PO SCH (07:48)
[2016-09-15] MEDS: INSULIN DETEMIR 100 UNIT/ML 10 ML VIAL SQ SCH (07:55)
[2016-09-15 09:28] VITALS: BP 148/75
--- NOTE | 2016-09-15 09:52 | CONS ---
DATE OF CONSULTATION: 09/14/2016 CHIEF COMPLAINT: Transient ischemic attack. HISTORY OF PRESENT ILLNESS: Mr. Reyes is a pleasant 70-year-old male who is being evaluated today on 09/14/16 by the neurology service per the request of Dr. Marshall for a transient ischemic attack. The patient was brought into [facility] Emergency Room after he suffered a transient episode of difficulty talking. Patient remembers knowing exactly what he wanted to say but the words would not come out. When any words do come out, they were garbled and his could not understand him. On route to the emergency room, his symptoms started to resolve and while in the emergency room, they did completely resolved. Overall, the symptoms lasted less than one hour. During that episode, he denies having any lateralizing numbness or weakness. The patient is on Coumadin for history of heart valve replacement and his INR was therapeutic at 3.2. A CT scan of the brain was done, which was normal. A CT angiogram of the brain was done, which showed no evidence of any arterial stenosis or aneurysms, but there was suspicion of a transverse sinus thrombosis. His CT angiogram of the neck showed complete occlusion of the right internal carotid artery and 60 to 70% occlusion of the left internal carotid artery. The patient is aware of his carotid stenosis and does follow with Dr. Guevara for this. His cardiac enzymes showed mildly elevated troponin I at 0.689. His CBC and urinalysis were normal. His comprehensive metabolic profile showed mild renal insufficiency with a BUN of 28 and creatinine of 1.35. His glucose was elevated at 170. The patient was admitted for further work-up and management and started on IV hydration. At the time of my evaluation, he denies any recurrence of any neurological symptoms. Cardiology had been consulted. PAST MEDICAL HISTORY: Diabetes, hypertension, dyslipidemia, benign prosthetic hypertrophy, carotid stenosis, history of cardiac valve replacement, history of defibrillator and pacemaker placement, thyroid disorder. SOCIAL HISTORY: He denies any tobacco or drug use. He occasionally drinks alcohol. FAMILY HISTORY: Positive for stroke and abdominal aneurysm. HOME MEDICATIONS: Reviewed in the chart. ALLERGIES: No known drug allergies. REVIEW OF SYSTEMS: CONSTITUTIONAL: Negative. EYES: Negative. ENT: Negative. CARDIOVASCULAR: As mentioned above. RESPIRATORY: Negative. NEUROLOGICAL: As mentioned above. GASTROINTESTINAL: Negative. GENITOURINARY: Positive for benign prostatic hypertrophy. ENDOCRINE: Positive for diabetes and hypothyroidism. PSYCHIATRIC: Negative. MUSCULOSKELETAL: Negative. DERMATOLOGICAL: Negative. PHYSICAL EXAM: Vital signs show a temperature of 98.1, pulse 84, respirations 17, blood pressure 155/78. GENERAL APPEARANCE: The patient is a well-developed male who appears to be in no acute distress. HEENT: Normocephalic, atraumatic, no facial asymmetry is seen. Extraocular muscles are intact. Neck is supple with no masses felt. CARDIOVASCULAR: Regular rate and rhythm. ABDOMEN: Nontender, nondistended. EXTREMITIES: No edema or clubbing. NEUROLOGICAL EXAM: The patient is alert, aware and oriented x3. Speech and language are normal. Strength is full in all 4 extremities. Sensory exam was normal to light touch in all 4 extremities. No pronator drift is seen. No facial asymmetry is noticed on cranial nerve testing. No tremors or seizure-like activity are seen. IMPRESSION: 1. Transient ischemic attack. 2. Expressive aphasia, resolved. 3. Carotid stenosis. 4. Questionable intracranial sinus thrombosis. 5. Coumadin therapy or history of cardiac valve replacement. 6. Hypertension. 7. Dyslipidemia. 8. Diabetes. 9. Renal insufficiency. 10. Elevated cardiac enzymes. RECOMMENDATIONS: The patient does appear to have suffered a transient ischemic attack with a transient episode of expressive aphasia. Ischemic episodes likely affected the left middle cerebral artery distribution. The patient is already on Coumadin for heart valve replacement surgery and his INR is therapeutic at 3.2. No further antiplatelet medications are recommended at this time. He does have history of left internal carotid artery stenosis, which measured at 60 to 70% on this admission by a CT angiogram. Vascular surgery has been consulted. He does have a history of an occlusion on the right internal carotid artery. Continue IV hydration as tolerated given his renal insufficiency. Cardiology has been consulted for his elevated cardiac enzymes. An EEG has been ordered. Continue neuro checks. I will continue to follow with you. Further recommendations to follow. Thank you for allowing me to in the care of your patient. If you have any questions, please feel free to contact me.
[2016-09-15 12:22] LABS: Glucose,Whole Blood 140 mg/dL (75-99)
--- NOTE | 2016-09-15 15:03 | P.PN ---
Subjective Principal diagnosis: TIA This is a 70-year-old gentleman with known history of hypertension, diabetes, hyperlipidemia, prior aortic and mitral valve replacements, AICD implantation, total right carotid occlusion, hypothyroidism, who presented to the hospital with expressive aphasia. Symptoms had completely resolved. He was seen in consultation by Dr. Tapia, patient of 60-70% left carotid stenosis , surgery is not warranted at this time. Has remained in normal sinus rhythm. Hemodynamically stable. Objective - Vital Signs Vital signs: Vital Signs Temp 97.7 F 09/15/16 07:44 Pulse 64 09/15/16 07:44 Resp 17 09/15/16 07:44 BP 148/75 09/15/16 09:28 Pulse Ox 97 09/15/16 07:44 Intake & Output 09/14/16 09/15/16 09/15/16 18:59 06:59 18:59 Intake Total 1005 1200 240 Output Total 1150 Balance 1005 50 240 Weight 101.7 kg 101.4 kg Intake: IV 525 1200 Sodium Chloride 0.9% 1, 525 1200 000 ml @ 75 mls/hr IV . [id number] [facility] Rx#:[id number] Oral 480 240 Output: Urine 1150 Other: Voiding Method Toilet Toilet Toilet Urinal Urinal Urinal # Voids 1 2 1 # Bowel Movements 0 0 - Exam PHYSICAL EXAMINATION: HEENT: Head is atraumatic, normocephalic. Pupils equal, round. Neck is supple. There is no elevated jugular venous pressure. HEART EXAMINATION: S1 and S2 systolic murmur is CHEST EXAMINATION: Lungs are clear to auscultation and precussion. No chest wall tenderness is noted on palpation or with deep breathing. ABDOMEN: Soft, nontender. Bowel sounds are heard. No organomegaly noted. EXTREMITIES: 2+ peripheral pulses with no evidence of peripheral edema and no calf tenderness noted. NEUROLOGIC patient is awake, alert and oriented -3. . - Labs CBC & Chem 7: 09/13/16 21:03 09/13/16 21:03 Labs: Abnormal Lab Results - Last 24 Hours (Table) 09/14/16 09/14/16 09/15/16 Range/Units 16:54 20:41 06:05 PT 33.4 H (9.0-12.0) sec POC Glucose (mg/dL) 109 H 129 H (75-99) mg/dL 09/15/16 Range/Units 12:17 PT (9.0-12.0) sec POC Glucose (mg/dL) 140 H (75-99) mg/dL Assessment and Plan Plan: Assessment and plan #1 symptoms of expressive aphasia, suggestive of TIA, completely resolved this morning. #2 known history of aortic and mitral valve replacements #3 AICD implantation #4 hypertension #5 hyperlipidemia #6 diabetes #7 hypothyroidism #7 abnormal troponin, 0.6, 0.8. Patient denies having any chest discomfort. Plan Echocardiogram with Doppler study was performed which revealed an ejection fraction of 40-45%. 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 We will forward a appendectomy of the cardiology consult along with progress notes an echo to his box turner. DNP note has been reviewed, I agree with a documented findings and plan of care. Patient was seen and examined.
--- NOTE | 2016-09-15 15:24 | P.DS ---
Providers Date of admission: 09/14/16 00:18 Expected date of discharge: 09/15/16 Attending physician: Florentin Marshall Consults: 09/14/16 08:22 Consult Physician Routine Consulting Provider: Jeyson Tapia Consult Reason/Comments: TIA Do you want consulting provider notified?: Yes Primary care physician: Leonora Chapman [facility] Course: This is a 70-year-old male. His primary care physician is Dr. Chapman. 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 Tapia. He states he was making a phone call to his sister and he had difficulty dialing the phone and called to wish her happy birthday and those were the only words he could get out. After that he was saying the wrong words and he felt very confused and he was aware of being confused. His also concurred that he had a confusion and had difficulty with speech. He presented to [facility] emergency center with the above complaints. Troponin 0.689, 0.803, BUN 28 creatinine 1.35. Blood sugar 170. INR 3.2. Urinalysis with small amount of blood. EKG was a normal sinus rhythm with first-degree AV block and intermittent paced beats. CTA revealed total occlusion of the right internal carotid artery, moderate 60-70% stenosis in the proximal left internal carotid artery. Focal filling defect area in the region of the transverse sinus on the right side in the axillary image probably an extrinsic defect or regularity rather than thrombosis of the right transverse sinus. Patient was admitted to the selective care unit for TIA. Neurology, cardiology and vascular consults ordered. Echocardiogram reveals mild tricuspid regurgitation, moderate concentric left ventricle hypertrophy, EF 40- 45%, possible torn chordae versus torn pap muscle seen in the LV apex. 09/15: Patient has been evaluated by PT, OT and speech therapy with no need for any continued therapies. Cardiology has cleared the patient for discharge. No return of his expressive aphasia. Patient will be discharged home today in stable condition. Discharge diagnoses: 1. TIA, presenting with expressive aphasia, resolved with known history of total occlusion of the right carotid and 60-70% on the left artery under surveillance by Dr. Tapia. 2. Elevated troponins. 3. History of aortic and mitral valve replacement. 3. History of heart failure with AICD implantation, stable. 4. Hypertension. 5. Hyperlipidemia. 6. Diabetes mellitus type 2. 7. Hypothyroidism. 8. Benign prostatic hypertrophy. 9. Vitamin D deficiency. Discharge plan: Return home Impression and plan of care have been directed as dictated by the signing physician. Tegan Gutiérrez nurse practitioner acting as scribe for signing physician. Patient Condition at Discharge: Good Plan - Discharge Summary New Discharge Prescriptions: Losartan [Cozaar] 100 mg PO DAILY #60 tab Discharge Medication List Levothyroxine Sodium [Synthroid] 88 mcg PO DAILY 01/03/14 [History] Metoprolol Tartrate [Lopressor] 50 mg PO BID 01/03/14 [History] Potassium Chloride [Klor-Con 10] 10 meq PO DAILY 01/03/14 [History] Aspirin EC [Ecotrin Low Dose] 81 mg PO DAILY 09/13/16 [History] Cholecalciferol [Vitamin D3] 2,000 unit PO DAILY 09/13/16 [History] Fenofibrate [Lofibra] 160 mg PO DAILY 09/13/16 [History] Glimepiride [Amaryl] 2 mg PO BID 09/13/16 [History] Insulin Glargine,Hum.rec.anlog [Toujeo Solostar] 10 units SQ DAILY 09/13/16 [ History] Magnesium Oxide [Mag-Ox] 400 mg PO DAILY 09/13/16 [History] Multivit-Min/FA/Lycopene/Lut [Centrum Silver Tablet] 1 tab PO DAILY 09/13/16 [ History] [place]-3 Fatty Acids/Fish Oil [Fish Oil 1,000 mg Softgel] 1 cap PO BID 09/13/16 [ History] Prasterone (Dhea) [Dhea] 50 mg PO DAILY 09/13/16 [History] Rosuvastatin Calcium [Crestor] 20 mg PO DAILY 09/13/16 [History] Terazosin HCl 2 mg PO HS 09/13/16 [History] Testosterone Cypionate [Depo-Testosterone] 200 mg IM Q21D 09/13/16 [History] Torsemide 10 mg PO MOWEFR 09/13/16 [History] Warfarin Sodium [Coumadin] 2 mg PO SUTU 09/13/16 [History] Warfarin Sodium [Coumadin] 5 mg PO MOWETHFRSA 09/13/16 [History] metFORMIN HCL [Glucophage] 850 mg PO W/SUPPER 09/13/16 [History] Losartan [Cozaar] 100 mg PO DAILY #60 tab 09/15/16 [Rx] Follow up Appointment(s)/Referral(s): Leonora Chapman MD [Primary Care Provider] - 09/22/16 9:30 am ([employer]) Jeyson Tapia MD [STAFF PHYSICIAN] - 09/28/16 11:00 am Activity/Diet/Wound Care/Special Instructions: 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
[2016-09-17] MEDS ORDERED: WARFARIN 2 MG TAB PO SCH (00:14)
--- NOTE | 2016-09-19 09:14 | CDI ---
In responding to this query, please exercise your independent professional judgment. The [facility] Coding Staff and Clinical Documentation Specialists appreciate your assistance in clarifying documentation, maintaining compliance with coding guidelines, accurately documenting patients condition and capturing severity of illness. The fact that a question is asked does not imply that any particular answer is desired or expected. Communication forms are a method of clarifying documentation and are not made part of the Legal Health Record. Thank you in advance for your clarification. Last Revision, October 2015 Mao Gonzalez [address] [facility] [place] [address] Documentation Clarification Form Date: 09/19/2016 8:51:00 AM From: Jesica Garg Admit Date: 09/14/2016 12:18:00 AM Patient Name: Mor Reyes Visit Number: [id number] Discharge Date: 09/19/16 Dr. Florentin Marshall TIA, presenting with expressive aphasia, resolved with known history of total occlusion of the right carotid and 60-60% on the left artery is documented in the discharge summary. Patient history/risk factors: hx arrhythmia s/p AICD, valvular heart disease w aortic valve and mitral valve replacement, DM type 2, hyperlipidemia, HTN, hypothyroidism, vit D deficiency, BPH Clinical indicators: CT head: total occlusion of right internal carotid artery in the proximal portion & 60-70-% stenosis in the proximal left internal carotid artery and left carotid bulb. Echo: mild tricuspid regurgitation, moderate concentric left ventricle hypertrophy, EF 40-45%, possibe torn chordae vs torn pap mucle seen in the LV apex. Treatment: Consult neurology, neuro checks, speech therapy, aspirin, Coumadin , discharged on Cozaar Neuro Consult: TIA with a transient episode of expressive aphasia. Ischemia episodes likely affected the left middle cerebral artery distrubution. In your professional opinion, please specify underlying etiology of the transient ischemic attack: Carotid Sinus Syncope Carotid Stenosis Hemorrhagic Stroke (if know specify specific location) Ischemic Stroke (if know specify cause, specific vessel/location, and laterality): Sequelae of Cerebrovascular Disease (specify Type of Cerebrovascular Disease ) Vertebo-Basilar Artery Syndrome Other (please specify): Etiology unknown or Unable to determine Please document in your progress notes and discharge summary in order to capture severity of illness and risk of mortality. Include clinical findings that support your diagnosis. FYI: Press F11 to launch patient chart LASHAE Lamar, JOSE, [facility] Certified I-10 Gang Bore Operator/Geophysical Observer Gang Bore Operator II JOSÉ
== END 2016-09-15 12:28 | disposition home or self-care (01) | DRG 68 ==
LOC: EC 20:45 → 6SEL 09-14 00:18
PROVIDERS: ADMIT Internal Medicine; ATTEND Internal Medicine
DX: I65.23 Occlusion and stenosis of bilateral carotid arteries (principal); I11.0 Hypertensive heart disease with heart failure; E11.9 Type 2 diabetes mellitus without complications; I50.9 Heart failure, unspecified; I07.1 Rheumatic tricuspid insufficiency; E55.9 Vitamin D deficiency, unspecified; E03.9 Hypothyroidism, unspecified; E78.5 Hyperlipidemia, unspecified; I25.10 Atherosclerotic heart disease of native coronary artery without angina pectoris; I44.0 Atrioventricular block, first degree; N40.0 Benign prostatic hyperplasia without lower urinary tract symptoms; N28.9 Disorder of kidney and ureter, unspecified; Z87.891 Personal history of nicotine dependence; Z95.2 Presence of prosthetic heart valve; Z95.810 Presence of automatic (implantable) cardiac defibrillator; Z82.3 Family history of stroke; Z79.82 Long term (current) use of aspirin; Z79.01 Long term (current) use of anticoagulants; Z79.84 Long term (current) use of oral hypoglycemic drugs; Z79.4 Long term (current) use of insulin; Z79.899 Other long term (current) drug therapy
CPT/HCPCS: 36415; 70450; 70496; 70498; 71010; 80053; 81001; 82550; 82553; 83036; 84484; 85025; 85610; 85730; 93005; 93306; 99291

== ENCOUNTER → 2016-12-18 | Outpatient (CLI) | payer MEDICARE ==
[2016-12-18 10:47] LABS: Blood Urea Nitrogen 24 mg/dL (9-20); Non-African American GFR(MDRD) 52 (>60 ml/min/1.73 sqM)
--- NOTE | 2016-12-18 13:15 | CT ---
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 Coronal/sagittal reconstructions performed. 3-D reconstructions ge nerated on a dedicated independent workstation. CT DLP: 1180.5 mGycm Automated exposure control for dose reduction was used. FINDINGS: Brain: Redemonstrated moderate patchy and confluent white matter hypodensities. No evidence for acute intrac ranial hemorrhage, acute ischemic change, mass, mass effect, midline shift, or extra-axial fluid zena ection. No hydrocephalus. No effacement of cerebral sulci or basal subarachnoid cisterns. Colvin-white matter differentiation is maintained. Redemonstrated small lacunar infarct within the left thalamus and left caudate head. Mild mucosal thickening maxillary sinuses. Mastoid air cells are well pneumatized. Orbits and globes are intact. CTA HEAD: Stable 9 mm hypodensity along the right transverse sinus probably a prominent arachnoid granulation. Redemonstrated occlusion of the right ICA. There is reconstitution at the supraclinoid segment likely due to a prominent right posterior indicating artery and collateral flow from the anterior communica ting artery as well. No aneurysmal change or other arterial occlusion seen. IMPRESSION: 1. NO ACUTE INTRACRANIAL ABNORMALITY SEEN. MODERATE PATCHY AND CONFLUENT CHANGES OF CHRONIC SMALL VES ERIC ISCHEMIC DISEASE WITH OLD LEFT CAUDATE HEAD AND THALAMIC LACUNAR INFARCTS. 2. STABLE FINDINGS OF RIGHT ICA OCCLUSION. THERE IS SIMILAR RECONSTITUTION AT THE SUPRACLINOID PORTIO N LIKELY FROM CONTRALATERAL FLOW ACROSS THE ANTERIOR COMMUNICATING ARTERY AND FROM A PROMINENT RIGHT POSTERIOR COMMUNICATING ARTERY.
== END | disposition home or self-care (01) ==
LOC: RADCTMAIN 10:07
PROVIDERS: ATTEND Psychiatry & Neurology Neurology
DX: G45.1 Carotid artery syndrome (hemispheric) (principal); Z13.89 Encounter for screening for other disorder
CPT/HCPCS: 82565; 84520; 70496; Q9967

== ENCOUNTER → 2017-06-05 | Outpatient (CLI) | payer MEDICARE ==
[2017-06-05 08:41] LABS: Blood Urea Nitrogen 21 mg/dL (9-20); Non-African American GFR(MDRD) 57 (>60 ml/min/1.73 sqM)
--- NOTE | 2017-06-05 09:56 | CT ---
EXAMINATION TYPE: CT abdomen wo/w con DATE OF EXAM: 06/05/2017 COMPARISON: NONE HISTORY: renal cyst CT DLP: 2025 mGycm Automated exposure control for dose reduction was used. TECHNIQUE: Helical acquisition of images was performed from the lung bases through the top of iliac crest to include entire abdomen. Pre and post contrast enhanced images are obtained. CONTRAST: Performed with Oral Contrast and with IV Contrast, patient injected with 80 mL of Visipaque 320. FINDINGS: LUNG BASES: There is evidence of cardiomegaly. LIVER/GB: There is evidence of cholelithiasis. No gallbladder wall thickening identified. The liver a ppears unremarkable. PANCREAS: No significant abnormality is seen. SPLEEN: No significant abnormality is seen. ADRENALS: No significant abnormality is seen. KIDNEYS: Approximately 10 simple cysts are seen of the right kidney the largest within the upper pole measures approximately 2.6 cm. No solid renal lesions are detected. The left kidney demonstrates liza roximately 6 simple appearing cysts the largest also within the upper pole measures approximately 3.7 cm in greatest dimension. There is an exophytic lesion anterior cortex upper pole left kidney which measures 1.5 cm and demonstrates Hounsfield unit measurement of approximately 50 post contrast and ap proximately 50 precontrast. This likely reflects a hemorrhagic cyst or cyst with increased proteinace ous content however this could be further confirmed with MRI or consider a short-term follow-up study in 4-6 months. BOWEL: No significant abnormality is seen. LYMPH NODES: No significant abnormality is seen. OSSEOUS STRUCTURES: No significant abnormality is seen. FREE AIR: No free air is visualized. OTHER: Degenerative changes of the spine. IMPRESSION: 1. SINGLE LESION UPPER POLE LEFT KIDNEY DISCUSSED DEMONSTRATES [place] UNIT OF APPROXIMATELY 50 ON BOTH THE PRE AND POSTCONTRAST ENHANCED STUDY MAY REFLECT HEMORRHAGIC CYST OR PROTEINACEOUS CYST. CONSIDER FURTHER CHARACTERIZATION WITH MRI VERSUS A FOLLOW-UP CT. 2. Multiple bilateral renal cysts.
== END | disposition home or self-care (01) ==
LOC: RADCTMAIN 08:04
PROVIDERS: ATTEND Urology
DX: N28.1 Cyst of kidney, acquired (principal); N28.89 Other specified disorders of kidney and ureter
CPT/HCPCS: 82565; 84520; 74170; Q9967